=== PATIENT | female | born 1990 | race Caucasian/White ===

== ENCOUNTER 2019-07-18 21:15 | Emergency (ER) | payer BC, OTHER ==
[~2019-07-18] VITALS: Ht 162.6 cm; Wt 61.2 kg
[~2019-07-18 21:15] MED LIST: CEPH-443 PO; IBUP-1561 PO
[2019-07-18 21:17] VITALS: Ht 162.6 cm; Wt 61.2 kg
[2019-07-18] MEDS ORDERED: KETOROLAC 15 MG INJ IM STA (21:42)
[2019-07-18 23:19] VITALS: BP 107/69; PULSE 66; RESP 17
== END 2019-07-18 23:19 | disposition home or self-care (01) ==
LOC: FTE 21:15
DX: N30.00 Acute cystitis without hematuria (principal); N83.209 Unspecified ovarian cyst, unspecified side
CPT/HCPCS: 76830; 76856; 81001; 81025; 96372; 99285; J1885